=== PATIENT | female | born 1955 | race Caucasian/White ===

== ENCOUNTER → 2021-05-07 | Outpatient (CLI) | payer MEDICARE ==
[~2021-05-07] MED LIST: ASPI81TA45 PO; AZIT250T89 PO; CARV3.1212 PO; CARV6.2512 PO; DOCU-131 PO; ESTR1TAB15 PO; FURO-93 PO; FURO20TA3 PO; LISI5TAB7 PO; MEDR2.5T30 PO; MULT-482 PO; SIMV10TA18 PO; SIMV40TA20 PO; SPIR25TA PO
== END | disposition home or self-care (01) ==
LOC: CFH 08:07
PROVIDERS: ATTEND Internal Medicine Cardiovascular Disease
DX: I08.3 Combined rheumatic disorders of mitral, aortic and tricuspid valves (principal); I11.0 Hypertensive heart disease with heart failure; E78.5 Hyperlipidemia, unspecified; I44.7 Left bundle-branch block, unspecified; I50.22 Chronic systolic (congestive) heart failure
CPT/HCPCS: 93306

== ENCOUNTER 2021-06-04 05:58 | Observation (INO) | payer MEDICARE ==
[~2021-06-04] VITALS: Ht 158.8 cm; Wt 89.9 kg
[2021-06-04] MEDS ORDERED: CARV12.52 PO (06:23)
[2021-06-04] MEDS ORDERED: LOSA50TA14 PO (06:23)
[2021-06-04] MEDS ORDERED: CARV-39 PO (06:23)
[2021-06-04] MEDS ORDERED: FURO80TA3 PO (06:23)
[2021-06-04] MEDS ORDERED: POTA10TA6 PO (06:24)
[2021-06-04 06:25] VITALS: BP 160/75
[2021-06-04] MEDS ORDERED: CEFAZOLIN PMX 1GM/50ML 50 ML IVPB ONE (06:30)
[2021-06-04] MEDS: SODIUM CHLORIDE 0.9% 1,000 ML IV SCH ×3 (06:30→23:06)
[2021-06-04 06:49] LABS: BASOPHILS % (AUTO) 1 % (0-1); EOSINOPHILS % (AUTO) 5 % (1-7); LYMPHOCYTES % (AUTO) 34 % (22-44); MEAN CORPUSCULAR HEMOGLOBIN 31.7 pg (27.0-34.8); MEAN PLATELET VOLUME 7.5 fL (7.4-10.4); MONOCYTES % (AUTO) 12 % (2-9); NEUTROPHILS % (AUTO) 49 % (42-75); PLATELET COUNT 172 x10^3/uL (130-400); RED BLOOD COUNT 3.99 x10^6/uL (3.82-5.3); RED CELL DISTRIBUTION WIDTH 12.9 % (9.6-15.2)
[2021-06-04 06:59] LABS: ANION GAP 4 mmol/L (5-15); CALCIUM 9.3 mg/dL (8.5-10.1); CHLORIDE 109 mmol/L (98-107); CREATININE 1.68 mg/dL (0.55-1.02)
[2021-06-04] MEDS ORDERED: SUCCINYLCHOLINE 20 MG/ML, 10ML ONE (07:58)
[2021-06-04] MEDS ORDERED: EPHEDRINE 50 MG/ML, 1ML ONE (07:58)
[2021-06-04] MEDS ORDERED: DEXAMETHASONE 4 MG/ML, 1ML ONE (07:58)
[2021-06-04] MEDS ORDERED: CEFAZOLIN 1,000 MG ONE ×2 (08:05→08:13)
[2021-06-04] MEDS ORDERED: LIDOCAINE 2%, 20ML ONE ×2 (08:05→08:30)
[2021-06-04] MEDS ORDERED: FENTANYL PF 250 MCG/5ML ONE (08:08)
[2021-06-04] MEDS ORDERED: ROCURONIUM 10MG/ML,5ML ONE (08:12)
[2021-06-04] MEDS ORDERED: PROPOFOL 10 MG/ML, 20ML ONE (08:12)
[2021-06-04] MEDS ORDERED: ACETAMINOPHEN 325 MG TABLET PO PRN ×2 (10:00)
[2021-06-04] MEDS ORDERED: ONDANSETRON 2MG/ML, 2ML IV PRN (10:00)
[2021-06-04] MEDS ORDERED: EPHEDRINE 50 MG/ML, 1ML IVPush PRN (10:00)
[2021-06-04] MEDS ORDERED: LABETALOL 5MG/ML, 20ML IV PRN (10:00)
[2021-06-04] MEDS ORDERED: DIAZEPAM 5 MG/ML, 2ML IVPush PRN (10:00)
[2021-06-04] MEDS ORDERED: HYDROmorphone 1 MG/ML, 1ML INJ IVPush PRN (10:00)
[2021-06-04] MEDS ORDERED: MEPERIDINE/PF 25MG/0.5ML IVPush PRN (10:00)
[2021-06-04] MEDS ORDERED: BISACODYL 10 MG SUPP PR PRN (10:00)
[2021-06-04] MEDS ORDERED: DIPHENHYDRAMINE 50 MG/ML, 1ML IVPush PRN ×2 (10:00)
[2021-06-04] MEDS ORDERED: ONDANSETRON 2MG/ML, 2ML IVPush PRN (10:00)
[2021-06-04] MEDS ORDERED: MIDAZOLAM 1 MG/ML, 2ML IV PRN (10:00)
[2021-06-04] MEDS ORDERED: HOLD MEDICATION MC PRN (10:00)
[2021-06-04] MEDS ORDERED: OXYcodone 5 MG/5 ML ORAL.SOL UDC PO PRN (10:00)
[2021-06-04] MEDS ORDERED: LORazepam 2 MG/ML, 1ML IVPush PRN (10:00)
[2021-06-04] MEDS ORDERED: hydrALAzine 20 MG/ML, 1ML IV PRN (10:00)
[2021-06-04] MEDS ORDERED: FENTANYL PF 100 MCG/2ML IV PRN (10:00)
[2021-06-04] MEDS ORDERED: PROMETHAZINE 25 MG/ML, 1ML IVPush PRN (10:00)
[2021-06-04] MEDS ORDERED: ALBUTEROL SULFATE 2.5 MG/3 ML NPPB PRN (10:00)
[2021-06-04] MEDS ORDERED: ZOLPIDEM 5MG TABLET PO PRN (10:00)
[2021-06-04] MEDS ORDERED: PROMETHAZINE 12.5 MG SUPP PR PRN (10:00)
[2021-06-04 12:22] VITALS: BP 143/78
[2021-06-04] MEDS: CEFAZOLIN PMX 1GM/50ML 50 ML IVPB SCH ×2 (14:36→20:47)
[2021-06-04 20:41] VITALS: BP 127/72
[2021-06-04] MEDS: SODIUM CHLORIDE FLUSH 10ML SYR IVF SCH (20:47)
[2021-06-04] MEDS ORDERED: CARVEDILOL 25 MG TABLET PO SCH (21:00)
[2021-06-04] MEDS ORDERED: SIMVASTATIN 40 MG TABLET PO SCH (21:00)
[2021-06-05 02:55] VITALS: BP 130/57
[2021-06-05 05:37] LABS: ANION GAP 7 mmol/L (5-15); CHLORIDE 107 mmol/L (98-107)
[2021-06-05 05:39] LABS: CREATININE 1.43 mg/dL (0.55-1.02)
[2021-06-05 07:26] VITALS: BP 139/79
[2021-06-05] MEDS ORDERED: CARVEDILOL 12.5 MG TABLET PO SCH (09:00)
[2021-06-05] MEDS ORDERED: ESTRADIOL 1 MG TABLET PO SCH (09:00)
[2021-06-05] MEDS ORDERED: ASPIRIN 81 MG TABLET EC PO SCH (09:00)
[2021-06-05] MEDS ORDERED: MULTIVITAMIN 1 TABLET PO SCH (09:00)
[2021-06-05] MEDS ORDERED: MEDROXYPROGESTERONE ACETATE 2.5 MG TABLET PO SCH (09:00)
[2021-06-05] MEDS ORDERED: POTASSIUM CHLORIDE 10 MEQ TABLET.ER PO SCH (09:00)
[2021-06-05] MEDS ORDERED: FUROSEMIDE 80 MG TABLET PO SCH (09:00)
[2021-06-05] MEDS ORDERED: LOSARTAN 50MG TABLET PO SCH (09:00)
[2021-06-05 09:04] VITALS: BP 113/73
[2021-06-05] MEDS: SODIUM CHLORIDE FLUSH 10ML SYR IVF SCH (09:08)
[2021-06-05] MEDS ORDERED: ACET325T26 PO (09:08)
== END 2021-06-05 11:25 | disposition home or self-care (01) ==
LOC: CACL 05:58 → ORIP 09:56 → 5SO 11:13 → CACL 15:52 → 5SO 16:59
PROVIDERS: ADMIT Internal Medicine Cardiovascular Disease; ATTEND Internal Medicine Cardiovascular Disease
DX: I42.8 Other cardiomyopathies (principal); Z20.822 Contact with and (suspected) exposure to COVID-19; I13.0 Hypertensive heart and chronic kidney disease with heart failure and stage 1 through stage 4 chronic kidney disease, or unspecified chronic kidney disease; I50.22 Chronic systolic (congestive) heart failure; N18.9 Chronic kidney disease, unspecified; I44.7 Left bundle-branch block, unspecified; I49.01 Ventricular fibrillation; E78.2 Mixed hyperlipidemia; Q26.1 Persistent left superior vena cava; Z79.82 Long term (current) use of aspirin; Z79.899 Other long term (current) drug therapy
CPT/HCPCS: 33225; 33249; 36415; 71045; 80048; 85025; 93005; 96365; 96366; C1769; C1779; C1882; C1887; C1892; C1895; C1900; G0378; J0330; J0690; J1100; J2704; J3010; J3490; Q9967; U0003; U0005

== ENCOUNTER 2021-07-14 11:04 | Observation (INO) | payer MEDICARE ==
[~2021-07-14] VITALS: Ht 158.8 cm; Wt 92.6 kg
[2021-07-15 07:19] VITALS: BP 124/77
== END 2021-07-15 10:42 | disposition home or self-care (01) ==
LOC: CACL 11:04 → 5SO 17:23 → CACL 19:35
PROVIDERS: ADMIT Internal Medicine Clinical Cardiac Electrophysiology; ATTEND Internal Medicine Clinical Cardiac Electrophysiology
DX: T82.897A Other specified complication of cardiac prosthetic devices, implants and grafts, initial encounter (principal); Z20.822 Contact with and (suspected) exposure to COVID-19; I42.9 Cardiomyopathy, unspecified; I44.7 Left bundle-branch block, unspecified; E78.5 Hyperlipidemia, unspecified; I11.0 Hypertensive heart disease with heart failure; I50.9 Heart failure, unspecified; Z79.899 Other long term (current) drug therapy
CPT/HCPCS: 33215; 36415; 71045; 71046; 80048; 85025; 85610; G0378; J0171; J0330; J0690; J1100; J2405; J2704; J3010; J3490; U0003; U0005